=== PATIENT | female | born 1995 ===

== ENCOUNTER 2016-09-26 17:56 | Emergency (ER) | payer MEDICAID, OTHER ==
[2016-09-26 17:56] VITALS: BMI 24.7
[2016-09-26 18:08] VITALS: O2SAT 100
--- NOTE | 2016-09-26 18:39 | C.PDOC ---
History Of Present Illness 20 yr old female with history of bipolar disorder and has been off Litium for a while, presents to the ER stating she is not able to sleep or eat for many days. Denies fever, chest pain, SOB, nausea, vomiting, headache, weakness or numbness. Denies suicidal ideation or homicidal ideation. Time Seen by Provider: 09/26/16 18:23 Chief Complaint (Nursing): Psychiatric Evaluation History Per: Patient History/Exam Limitations: no limitations Onset/Duration Of Symptoms: Days (Many days) Current Symptoms Are (Timing): Still Present Associated Symptoms: denies: Suicidal Thoughts Past Medical History Reviewed: Historical Data, Nursing Documentation, Vital Signs Vital Signs: Last Vital Signs Temp 98.2 F 09/26/16 18:04 Pulse 88 09/26/16 18:04 Resp 16 09/26/16 18:04 BP 131/82 09/26/16 18:04 Pulse Ox 100 09/26/16 18:41 - Medical History PMH: Anxiety, Bipolar Disorder, Chronic Kidney Disease (hx of kidney infections) - [email or web address] Procedures NEBULIZER THERAPY (11/02/14) Family History: States: No Known Family Hx - Social History Hx Tobacco Use: Yes Hx Alcohol Use: No Hx Substance Use: No - Immunization History Hx Tetanus Toxoid Vaccination: No Hx Influenza Vaccination: No Hx Pneumococcal Vaccination: No Review Of Systems Except As Marked, All Systems Reviewed And Found Negative. Constitutional: Negative for: Fever Cardiovascular: Negative for: Chest Pain Respiratory: Negative for: Shortness of Breath Gastrointestinal: Negative for: Nausea, Vomiting Neurological: Negative for: Weakness, Numbness, Headache Physical Exam - Physical Exam Appears: Non-toxic, Other ((+) Anxious by coopertive. ) Skin: Warm, Dry, No Rash Head: Atraumatic, Normacephalic Chest: Symmetrical, No Tenderness Cardiovascular: Rhythm Regular, No Murmur Respiratory: Normal Breath Sounds, No Stridor, No Wheezing Extremity: Normal ROM, No Swelling Neurological/Psych: Oriented x3, Normal Speech, Normal Motor ED Course And Treatment - Laboratory Results Result Diagrams: 09/26/16 18:38 09/26/16 18:38 Lab Interpretation: Abnormal (Few wbc's in urine) Urine POC: Negative O2 Sat by Pulse Oximetry: 100 Reevaluation Time: 20:15 Reassessment Condition: Improved - Physician Consult Information Outcome Of Conversation: 2015: d/w Crisis- ok to d/c and opt f/u. asks to Rx a few xanax 0.25 po for PRN use. will see in AM Medical Decision Making Medical Decision Making: PLAN: * Acetaminophen * Alcohol Serum * Drug Screen * CBC * CMP * HCG * Urinalysis poorly controlled Bipolar, no suicidal ideation/HI Disposition Doctor Will See Patient In The: Office Counseled Patient/Family Regarding: Studies Performed, Diagnosis - Disposition Disposition: HOME/ ROUTINE Disposition Time: 20:15 Condition: GOOD - Clinical Impression Clinical Impression: Anxiety, Manic bipolar I disorder - Scribe Statement The provider has reviewed the documentation as recorded by the Yoditibshukri Scott Provider Attestation: All medical record entries made by the Reese were at my direction and personally dictated by me. I have reviewed the chart and agree that the record accurately reflects my personal performance of the history, physical exam, medical decision making, and the department course for this patient. I have also personally directed, reviewed, and agree with the discharge instructions and disposition.
[2016-09-26 18:41] LABS: BASO % 0.5 % (0.0-2.0); EOS # 0.2 K/uL (0.0-0.7); EOS % 1.8 % (0.0-4.0); HEMOGLOBIN 12.9 g/dL (11.0-16.0); LYMPH # 2.8 K/uL (1.0-4.3); LYMPH % 31.2 % (20.0-40.0); MEAN CELL VOLUME 86.4 fL (81.0-99.0); MEAN CORPUSCULAR HEMOGLOBIN 28.6 pg (27.0-31.0); MEAN CORPUSCULAR HGB CONC 33.1 g/dL (33.0-37.0); MEAN PLATELET VOLUME 8.9 fL (7.2-11.7); MONO # 0.5 K/uL (0.0-0.8); NEUT # 5.5 K/uL (1.8-7.0); NEUT % 61.5 % (50.0-75.0); NRBC % 0.1 % (0.0-2.0); RBC 4.51 Mil/uL (3.80-5.20); RED CELL DISTRIBUTION WIDTH 12.6 % (11.5-14.5)
[2016-09-26 18:51] LABS: SALICYLATE < 1.0 mg/dL 1
[2016-09-26 18:52] LABS: ACETAMINOPHEN < 10.0 ug/mL (10.0-30.0)
[2016-09-26 18:53] LABS: BARBITURATES, UR NEGATIVE (NEGATIVE); BENZODIAZEPINES, UR NEGATIVE (NEGATIVE)
[2016-09-26 18:56] LABS: OPIATES, UR NEGATIVE (NEGATIVE); PHENCYCLIDINE, UR NEGATIVE (NEGATIVE)
[2016-09-26 18:58] LABS: SQUAMOUS EPITHIAL 15 /hpf (0-5); URINE BACTERIA FEW (<OCC); URINE BILIRUBIN NEGATIVE (NEGATIVE); URINE BLOOD 3+ (NEGATIVE); URINE CLARITY Hazy (Clear); URINE COLOR Yellow (YELLOW); URINE GLUCOSE (UA) NORMAL (Normal); URINE LEUKOCYTE ESTERASE 1+ Leu/uL (Negative); URINE NITRATE NEGATIVE (NEGATIVE); URINE PROTEIN 1+ mg/dL (NEGATIVE); URINE UROBILINOGEN NORMAL mg/dL (0.2-1.0)
[2016-09-26 18:59] LABS: HCG,QUALITATIVE URINE NEGATIVE (NEGATIVE)
[2016-09-26 19:21] LABS: ALBUMIN 4.3 g/dL (3.5-5.0)
[2016-09-26 19:24] LABS: ALB/GLOB RATIO 1.3 (1.0-2.1); ALT/SGPT 13 U/L (9-52); AST/SGOT 19 U/L (14-36); BLOOD UREA NITROGEN 8 mg/dL (7-17); CALCIUM 9.3 mg/dl (8.6-10.4); GFR AFRICAN-AMERICAN > 60; GFR NON-AFRICAN AMERICAN > 60
[2016-09-26 20:25] VITALS: BP 122/78; PULSE 72; RESP 20; TEMP 98.5
== END 2016-09-26 20:27 | disposition home or self-care (01) ==
LOC: C.ER 17:56
DX: F41.9 Anxiety disorder, unspecified (principal); F31.9 Bipolar disorder, unspecified